=== PATIENT | male | born 1950 | race Caucasian/White ===

== ENCOUNTER 2020-08-15 19:34 | Inpatient (IN) | payer MEDICARE, MEDICAID ==
[~2020-08-15] VITALS: Ht 170.2 cm; Wt 178.0 kg
[2020-08-15 20:00] VITALS: BP 143/92
[2020-08-15] MEDS ORDERED: INSULIN GLARGINE,HUM.REC.ANLOG 100 UNITS/ML SQ SCH (21:00)
[2020-08-15] MEDS ORDERED: ACETAMINOPHEN 325 MG TABLET PO PRN ×2 (21:00→21:15)
[2020-08-15] MEDS ORDERED: DEXTROSE 50%-WATER 25 GM/50 ML SYRINGE IVP PRN (21:15)
[2020-08-15] MEDS: DOCUSATE SODIUM 250 MG CAPSULE PO SCH (22:07)
[2020-08-15] MEDS: INSULIN LISPRO 100 UNITS/ML SQ PRN (22:11)
[2020-08-16] VITALS: BP 125/83
[2020-08-16 06:10] LABS: GLUCOMETER DEV NAME(LOC) 2WR.2B; GLUCOSE,POINT OF CARE 170 MG/DL (70-110)
[2020-08-16 06:49] LABS: BASOPHILS % (AUTO) 0.7 % (0.0-2.0); EOSINOPHILS % (AUTO) 4.8 % (1.0-6.0); HEMATOCRIT 40.9 % (41-53); HEMOGLOBIN 13.8 g/dL (13.5-17.5); LYMPHOCYTES # (AUTO) 2.7 K/uL (1.0-4.8); LYMPHOCYTES % (AUTO) 36.2 % (22.0-44.0); MEAN CORPUSCULAR HEMOGLOBIN 29.1 pg (26.0-34.0); MEAN CORPUSCULAR HGB CONC 33.8 G/dL (31.0-37.0); MEAN CORPUSCULAR VOLUME 86 fL (80-100); MONOCYTES # (AUTO) 0.8 K/uL (0.1-1.0); MONOCYTES % (AUTO) 10.5 % (2.0-9.0); NEUTROPHILS # (AUTO) 3.5 K/uL (1.8-7.7); NEUTROPHILS % (AUTO) 47.8 % (40.0-70.0); PLATELET COUNT (AUTO) 289 K/uL (150-450); RED BLOOD CELL COUNT(AUTO) 4.74 MIL/uL (4.50-5.90); RED CELL DISTRIBUTION WIDTH 14.1 % (11.5-14.5)
[2020-08-16] MEDS: INSULIN LISPRO 100 UNITS/ML SQ SCH ×3 (07:00→16:30)
[2020-08-16 07:06] LABS: ALANINE AMINOTRANSFERASE 49 U/L (12-78); ALBUMIN 3.6 g/dL (3.4-5.0); ALKALINE PHOSPHATASE 122 U/L (46-116); ANION GAP 13 mmol/L (8-16); ASPARTATE AMINOTRANSFERASE 38 U/L (15-37); BILIRUBIN,TOTAL 0.5 mg/dL (0.1-1.0); CALCIUM, TOTAL 9.2 mg/dL (8.8-10.5); CARBON DIOXIDE 25 mmol/L (22-29); CHLORIDE 101 mmol/L (98-107); CREATININE 0.86 mg/dL (0.60-1.30); GLOMERULAR FILTR. RATE CALC > 60 mL/min (>60); GLUCOSE,RANDOM 187 mg/dL (70-110); POTASSIUM 3.9 mmol/L (3.5-5.1); SODIUM SERUM 139 mmol/L (136-145); TOTAL PROTEIN, SERUM 7.6 g/dL (6.4-8.2); UREA NITROGEN, BLOOD 20 mg/dL (7-18)
[2020-08-16 07:56] VITALS: BP 134/76
[2020-08-16] MEDS: LOSARTAN POTASSIUM 50 MG TABLET PO SCH (08:31)
[2020-08-16] MEDS: DOCUSATE SODIUM 250 MG CAPSULE PO SCH ×2 (08:31→20:14)
[2020-08-16] MEDS: AmLODIPine BESYLATE 10 MG TABLET PO SCH (08:31)
[2020-08-16] MEDS: ONDANSETRON HCL 4 MG TABLET PO PRN ×2 (08:33→18:49)
[2020-08-16] MEDS: INSULIN LISPRO 100 UNITS/ML SQ PRN ×3 (11:58→20:23)
[2020-08-16 12:00] LABS: GLUCOMETER DEV NAME(LOC) 2WR.2B; GLUCOSE,POINT OF CARE 208 MG/DL (70-110)
[2020-08-16] MEDS: POLYETHYLENE GLYCOL 3350 17 GM PACKET PO SCH (16:09)
[2020-08-16] MEDS: MECLIZINE HCL 25 MG TABLET PO SCH ×2 (16:09→20:14)
[2020-08-16 16:31] VITALS: BP 95/64
[2020-08-16 17:47] LABS: GLUCOMETER DEV NAME(LOC) 2WR.1C; GLUCOSE,POINT OF CARE 165 MG/DL (70-110)
[2020-08-16] MEDS: MELATONIN 3 MG TABLET PO PRN (20:14)
[2020-08-16] MEDS: INSULIN GLARGINE,HUM.REC.ANLOG 100 UNITS/ML SQ SCH (20:22)
[2020-08-16 20:59] LABS: GLUCOMETER DEV NAME(LOC) 2WR.2B; GLUCOSE,POINT OF CARE 201 MG/DL (70-110)
[2020-08-16] MEDS ORDERED: LISI-893 PO (21:44)
[2020-08-16] MEDS ORDERED: ASPI-1450 PO (21:44)
[2020-08-16] MEDS ORDERED: ATOR40TA28 PO (21:44)
[2020-08-16] MEDS ORDERED: DIME50TA23 PO (21:44)
[2020-08-16] MEDS ORDERED: METF-961 PO (21:44)
[2020-08-17] VITALS: BP 109/75
[2020-08-17] MEDS: FAMOTIDINE 20 MG TABLET PO SCH (05:53)
[2020-08-17] MEDS: INSULIN LISPRO 100 UNITS/ML SQ SCH ×3 (07:00→17:52)
[2020-08-17 08:05] VITALS: BP 127/78
[2020-08-17] MEDS: MECLIZINE HCL 25 MG TABLET PO SCH ×3 (08:36→20:17)
[2020-08-17] MEDS: AmLODIPine BESYLATE 10 MG TABLET PO SCH (08:36)
[2020-08-17] MEDS: DOCUSATE SODIUM 250 MG CAPSULE PO SCH ×2 (08:37→20:17)
[2020-08-17] MEDS: LOSARTAN POTASSIUM 50 MG TABLET PO SCH (08:37)
[2020-08-17] MEDS: POLYETHYLENE GLYCOL 3350 17 GM PACKET PO SCH (08:37)
[2020-08-17 12:16] LABS: GLUCOMETER DEV NAME(LOC) 2WR.1C; GLUCOSE,POINT OF CARE 138 MG/DL (70-110)
[2020-08-17] MEDS: INSULIN LISPRO 100 UNITS/ML SQ PRN ×3 (12:26→21:05)
[2020-08-17 12:59] LABS: GLUCOMETER DEV NAME(LOC) 2WR.1C; GLUCOSE,POINT OF CARE 245 MG/DL (70-110)
[2020-08-17] MEDS: MAGNESIUM HYDROXIDE SUSPENSION 30 ML UDCUP PO PRN (15:03)
[2020-08-17 16:10] VITALS: BP 97/59
[2020-08-17 18:07] LABS: GLUCOMETER DEV NAME(LOC) 2WR.2B; GLUCOSE,POINT OF CARE 221 MG/DL (70-110)
[2020-08-17] MEDS: MELATONIN 3 MG TABLET PO PRN (20:17)
[2020-08-17] MEDS: INSULIN GLARGINE,HUM.REC.ANLOG 100 UNITS/ML SQ SCH (21:04)
[2020-08-17 21:49] LABS: GLUCOMETER DEV NAME(LOC) 2WR.2B; GLUCOSE,POINT OF CARE 165 MG/DL (70-110)
[2020-08-18] VITALS: BP 117/72
[2020-08-18 05:45] LABS: GLUCOMETER DEV NAME(LOC) 2WR.1C; GLUCOSE,POINT OF CARE 166 MG/DL (70-110)
[2020-08-18] MEDS: FAMOTIDINE 20 MG TABLET PO SCH (05:49)
[2020-08-18 08:01] VITALS: BP 121/68
[2020-08-18] MEDS: DOCUSATE SODIUM 250 MG CAPSULE PO SCH ×2 (09:53→20:46)
[2020-08-18] MEDS: MECLIZINE HCL 25 MG TABLET PO SCH ×3 (09:53→20:46)
[2020-08-18] MEDS: AmLODIPine BESYLATE 10 MG TABLET PO SCH (09:53)
[2020-08-18] MEDS: INSULIN LISPRO 100 UNITS/ML SQ SCH (09:53)
[2020-08-18] MEDS: POLYETHYLENE GLYCOL 3350 17 GM PACKET PO SCH (09:53)
[2020-08-18] MEDS: LOSARTAN POTASSIUM 50 MG TABLET PO SCH (09:53)
[2020-08-18] MEDS: INSULIN LISPRO 100 UNITS/ML SQ PRN ×4 (09:54→21:13)
[2020-08-18] MEDS ORDERED: ASPI-1522 PO (11:24)
[2020-08-18 12:49] LABS: GLUCOMETER DEV NAME(LOC) 2WR.1C; GLUCOSE,POINT OF CARE 171 MG/DL (70-110)
[2020-08-18] MEDS: MAGNESIUM HYDROXIDE SUSPENSION 30 ML UDCUP PO PRN (16:10)
[2020-08-18 16:51] VITALS: BP 104/43
[2020-08-18] MEDS: MetFORMIN HCL 500 MG TABLET PO SCH (17:13)
[2020-08-18] MEDS: INSULIN GLARGINE,HUM.REC.ANLOG 100 UNITS/ML SQ SCH (21:13)
[2020-08-18 21:30] LABS: GLUCOMETER DEV NAME(LOC) 2WR.2B; GLUCOSE,POINT OF CARE 248 MG/DL (70-110)
[2020-08-18] MEDS: ONDANSETRON HCL 4 MG TABLET PO PRN (23:40)
[2020-08-19] VITALS: BP 130/80
[2020-08-19] MEDS: FAMOTIDINE 20 MG TABLET PO SCH (05:21)
[2020-08-19 06:00] LABS: GLUCOMETER DEV NAME(LOC) 2WR.1C; GLUCOSE,POINT OF CARE 198 MG/DL (70-110)
[2020-08-19 06:01] LABS: GLUCOMETER DEV NAME(LOC) 2WR.1C; GLUCOSE,POINT OF CARE 163 MG/DL (70-110)
[2020-08-19] MEDS: MetFORMIN HCL 500 MG TABLET PO SCH ×2 (07:48→17:19)
[2020-08-19] MEDS: INSULIN LISPRO 100 UNITS/ML SQ PRN ×4 (07:49→21:18)
[2020-08-19] MEDS: LOSARTAN POTASSIUM 50 MG TABLET PO SCH (08:31)
[2020-08-19] MEDS: AmLODIPine BESYLATE 10 MG TABLET PO SCH (08:31)
[2020-08-19] MEDS: POLYETHYLENE GLYCOL 3350 17 GM PACKET PO SCH (08:31)
[2020-08-19] MEDS: DOCUSATE SODIUM 250 MG CAPSULE PO SCH ×2 (08:31→21:09)
[2020-08-19] MEDS: MECLIZINE HCL 25 MG TABLET PO SCH ×3 (08:31→21:09)
[2020-08-19 10:29] VITALS: BP 133/74
[2020-08-19 11:34] LABS: GLUCOMETER DEV NAME(LOC) 2WR.2B; GLUCOSE,POINT OF CARE 186 MG/DL (70-110)
[2020-08-19] MEDS: ONDANSETRON HCL 4 MG TABLET PO PRN ×2 (12:39→21:09)
[2020-08-19 16:46] VITALS: BP 131/75
[2020-08-19 19:26] LABS: GLUCOMETER DEV NAME(LOC) 2WR.2B; GLUCOSE,POINT OF CARE 195 MG/DL (70-110)
[2020-08-19] MEDS: INSULIN GLARGINE,HUM.REC.ANLOG 100 UNITS/ML SQ SCH (21:17)
[2020-08-20 05:28] LABS: GLUCOMETER DEV NAME(LOC) 2WR.1C; GLUCOSE,POINT OF CARE 174 MG/DL (70-110)
[2020-08-20 05:50] VITALS: BP 116/71
[2020-08-20] MEDS: FAMOTIDINE 20 MG TABLET PO SCH (05:59)
[2020-08-20 06:15] LABS: GLUCOMETER DEV NAME(LOC) 2WR.1C; GLUCOSE,POINT OF CARE 129 MG/DL (70-110)
[2020-08-20 07:30] VITALS: BP 142/78
[2020-08-20] MEDS: MetFORMIN HCL 500 MG TABLET PO SCH ×2 (08:22→17:49)
[2020-08-20] MEDS: MECLIZINE HCL 25 MG TABLET PO SCH ×3 (08:22→20:37)
[2020-08-20] MEDS: ONDANSETRON HCL 4 MG TABLET PO PRN ×2 (08:22→21:13)
[2020-08-20] MEDS: AmLODIPine BESYLATE 10 MG TABLET PO SCH (08:22)
[2020-08-20] MEDS: LOSARTAN POTASSIUM 50 MG TABLET PO SCH (08:22)
[2020-08-20] MEDS: POLYETHYLENE GLYCOL 3350 17 GM PACKET PO SCH (08:22)
[2020-08-20] MEDS: DOCUSATE SODIUM 250 MG CAPSULE PO SCH ×2 (08:22→20:37)
[2020-08-20] MEDS: INSULIN LISPRO 100 UNITS/ML SQ PRN ×3 (12:35→20:46)
[2020-08-20 15:04] LABS: GLUCOMETER DEV NAME(LOC) 2WR.1C; GLUCOSE,POINT OF CARE 227 MG/DL (70-110)
[2020-08-20 18:08] VITALS: BP 110/77
[2020-08-20 18:55] LABS: GLUCOMETER DEV NAME(LOC) 2WR.1C; GLUCOSE,POINT OF CARE 207 MG/DL (70-110)
[2020-08-20] MEDS: INSULIN GLARGINE,HUM.REC.ANLOG 100 UNITS/ML SQ SCH (20:44)
[2020-08-20 21:09] VITALS: BP 116/66
[2020-08-20 21:56] LABS: GLUCOMETER DEV NAME(LOC) 2WR.2B; GLUCOSE,POINT OF CARE 224 MG/DL (70-110)
[2020-08-21] VITALS: BP 130/80
[2020-08-21] MEDS: FAMOTIDINE 20 MG TABLET PO SCH (05:58)
[2020-08-21 06:19] LABS: GLUCOMETER DEV NAME(LOC) 2WR.2B; GLUCOSE,POINT OF CARE 130 MG/DL (70-110)
[2020-08-21] MEDS: MetFORMIN HCL 500 MG TABLET PO SCH ×3 (07:30→17:11)
[2020-08-21 08:00] VITALS: BP 131/78
[2020-08-21] MEDS: ONDANSETRON HCL 4 MG TABLET PO PRN ×2 (08:45→15:16)
[2020-08-21] MEDS: DOCUSATE SODIUM 250 MG CAPSULE PO SCH ×3 (08:46→20:49)
[2020-08-21] MEDS: POLYETHYLENE GLYCOL 3350 17 GM PACKET PO SCH ×2 (08:46→09:00)
[2020-08-21] MEDS: LOSARTAN POTASSIUM 50 MG TABLET PO SCH (08:46)
[2020-08-21] MEDS: MECLIZINE HCL 25 MG TABLET PO SCH ×3 (08:48→20:49)
[2020-08-21] MEDS: AmLODIPine BESYLATE 10 MG TABLET PO SCH (08:48)
[2020-08-21] MEDS ORDERED: SODIUM CHLORIDE 0.9% 1,000 ML IV ONE (10:45)
[2020-08-21 12:49] LABS: GLUCOMETER DEV NAME(LOC) 2WR.2B; GLUCOSE,POINT OF CARE 165 MG/DL (70-110)
[2020-08-21 14:09] LABS: BASOPHILS % (AUTO) 0.3 % (0.0-2.0); EOSINOPHILS % (AUTO) 2.6 % (1.0-6.0); HEMATOCRIT 38.7 % (41-53); HEMOGLOBIN 12.7 g/dL (13.5-17.5); LYMPHOCYTES # (AUTO) 1.7 K/uL (1.0-4.8); LYMPHOCYTES % (AUTO) 29.2 % (22.0-44.0); MEAN CORPUSCULAR HEMOGLOBIN 28.6 pg (26.0-34.0); MEAN CORPUSCULAR HGB CONC 32.8 G/dL (31.0-37.0); MEAN CORPUSCULAR VOLUME 87 fL (80-100); MONOCYTES # (AUTO) 0.5 K/uL (0.1-1.0); MONOCYTES % (AUTO) 7.9 % (2.0-9.0); NEUTROPHILS # (AUTO) 3.4 K/uL (1.8-7.7); PLATELET COUNT (AUTO) 241 K/uL (150-450); RED BLOOD CELL COUNT(AUTO) 4.45 MIL/uL (4.50-5.90); RED CELL DISTRIBUTION WIDTH 14.2 % (11.5-14.5)
[2020-08-21 14:17] LABS: ALANINE AMINOTRANSFERASE 37 U/L (12-78); ALBUMIN 3.1 g/dL (3.4-5.0); ALKALINE PHOSPHATASE 97 U/L (46-116); ANION GAP 8 mmol/L (8-16); ASPARTATE AMINOTRANSFERASE 22 U/L (15-37); BILIRUBIN,TOTAL 0.5 mg/dL (0.1-1.0); CALCIUM, TOTAL 7.8 mg/dL (8.8-10.5); CARBON DIOXIDE 24 mmol/L (22-29); CHLORIDE 104 mmol/L (98-107); CREATININE 0.79 mg/dL (0.60-1.30); GLOMERULAR FILTR. RATE CALC > 60 mL/min (>60); GLUCOSE,RANDOM 153 mg/dL (70-110); POTASSIUM 3.9 mmol/L (3.5-5.1); SODIUM SERUM 136 mmol/L (136-145); TOTAL PROTEIN, SERUM 6.5 g/dL (6.4-8.2); UREA NITROGEN, BLOOD 21 mg/dL (7-18)
[2020-08-21 16:27] VITALS: BP 133/69
[2020-08-21] MEDS: INSULIN LISPRO 100 UNITS/ML SQ PRN ×2 (17:44→21:44)
[2020-08-21 18:10] LABS: GLUCOMETER DEV NAME(LOC) 2WR.1C; GLUCOSE,POINT OF CARE 173 MG/DL (70-110)
[2020-08-21] MEDS: INSULIN GLARGINE,HUM.REC.ANLOG 100 UNITS/ML SQ SCH (21:45)
[2020-08-22] VITALS: BP 118/79
[2020-08-22 00:22] LABS: GLUCOMETER DEV NAME(LOC) 2WR.1C; GLUCOSE,POINT OF CARE 206 MG/DL (70-110)
[2020-08-22] MEDS: FAMOTIDINE 20 MG TABLET PO SCH (05:42)
[2020-08-22 05:49] LABS: GLUCOMETER DEV NAME(LOC) 2WR.1C; GLUCOSE,POINT OF CARE 95 MG/DL (70-110)
[2020-08-22] MEDS: MECLIZINE HCL 25 MG TABLET PO SCH ×3 (07:48→20:49)
[2020-08-22] MEDS: POLYETHYLENE GLYCOL 3350 17 GM PACKET PO SCH ×2 (07:48→07:53)
[2020-08-22] MEDS: DOCUSATE SODIUM 250 MG CAPSULE PO SCH ×2 (07:48→20:49)
[2020-08-22] MEDS: AmLODIPine BESYLATE 10 MG TABLET PO SCH (07:48)
[2020-08-22] MEDS: MetFORMIN HCL 500 MG TABLET PO SCH ×2 (07:48→17:27)
[2020-08-22] MEDS: LOSARTAN POTASSIUM 50 MG TABLET PO SCH (07:48)
[2020-08-22 08:18] VITALS: BP 133/76
[2020-08-22] MEDS: ONDANSETRON HCL 4 MG TABLET PO PRN ×2 (11:08→17:27)
[2020-08-22 14:46] LABS: GLUCOMETER DEV NAME(LOC) 2WR.1C; GLUCOSE,POINT OF CARE 181 MG/DL (70-110)
[2020-08-22] MEDS: DICLOFENAC SODIUM 1% 100 GM GEL [4GM] TP SCH ×2 (15:41→20:52)
[2020-08-22 18:36] LABS: GLUCOMETER DEV NAME(LOC) 2WR.2B; GLUCOSE,POINT OF CARE 129 MG/DL (70-110)
[2020-08-22 19:04] VITALS: BP 148/80
[2020-08-22] MEDS: INSULIN LISPRO 100 UNITS/ML SQ PRN (21:00)
[2020-08-22] MEDS: INSULIN GLARGINE,HUM.REC.ANLOG 100 UNITS/ML SQ SCH (21:01)
[2020-08-22 22:08] LABS: GLUCOMETER DEV NAME(LOC) 2WR.1C; GLUCOSE,POINT OF CARE 176 MG/DL (70-110)
[2020-08-22] MEDS: 0.9% SODIUM CHLORIDE 10 ML SYRINGE IVP SCH (23:32)
[2020-08-23] VITALS: BP 125/67
[2020-08-23] MEDS: FAMOTIDINE 20 MG TABLET PO SCH (05:49)
[2020-08-23 05:56] LABS: GLUCOMETER DEV NAME(LOC) 2WR.1C; GLUCOSE,POINT OF CARE 102 MG/DL (70-110)
[2020-08-23 08:00] VITALS: BP 123/61
[2020-08-23] MEDS: MECLIZINE HCL 25 MG TABLET PO SCH ×3 (08:06→20:46)
[2020-08-23] MEDS: AmLODIPine BESYLATE 10 MG TABLET PO SCH (08:07)
[2020-08-23] MEDS: LOSARTAN POTASSIUM 50 MG TABLET PO SCH (08:07)
[2020-08-23] MEDS: MetFORMIN HCL 500 MG TABLET PO SCH ×2 (08:07→17:00)
[2020-08-23] MEDS: POLYETHYLENE GLYCOL 3350 17 GM PACKET PO SCH (08:08)
[2020-08-23] MEDS: DICLOFENAC SODIUM 1% 100 GM GEL [4GM] TP SCH ×3 (08:08→20:46)
[2020-08-23] MEDS: 0.9% SODIUM CHLORIDE 10 ML SYRINGE IVP SCH ×3 (08:09→23:36)
[2020-08-23] MEDS: DOCUSATE SODIUM 250 MG CAPSULE PO SCH ×2 (08:09→20:46)
[2020-08-23] MEDS: ONDANSETRON HCL 4 MG TABLET PO PRN (10:43)
[2020-08-23 16:19] VITALS: BP 120/76
[2020-08-23] MEDS: INSULIN GLARGINE,HUM.REC.ANLOG 100 UNITS/ML SQ SCH (20:51)
[2020-08-23 21:08] LABS: GLUCOMETER DEV NAME(LOC) 2WR.2B; GLUCOSE,POINT OF CARE 111 MG/DL (70-110)
[2020-08-23 21:52] LABS: GLUCOMETER DEV NAME(LOC) 2WR.1C; GLUCOSE,POINT OF CARE 170 MG/DL (70-110)
[2020-08-23 21:52] LABS: GLUCOMETER DEV NAME(LOC) 2WR.1C; GLUCOSE,POINT OF CARE 136 MG/DL (70-110)
[2020-08-24 05:00] VITALS: BP 121/63
[2020-08-24] MEDS: FAMOTIDINE 20 MG TABLET PO SCH (05:44)
[2020-08-24] MEDS: ONDANSETRON HCL 4 MG TABLET PO PRN ×2 (05:48→16:34)
[2020-08-24 06:37] LABS: GLUCOMETER DEV NAME(LOC) 2WR.1C; GLUCOSE,POINT OF CARE 84 MG/DL (70-110)
[2020-08-24 07:45] VITALS: BP 129/76
[2020-08-24] MEDS: DOCUSATE SODIUM 250 MG CAPSULE PO SCH ×2 (07:49→20:44)
[2020-08-24] MEDS: MECLIZINE HCL 25 MG TABLET PO SCH ×3 (07:49→20:45)
[2020-08-24] MEDS: DICLOFENAC SODIUM 1% 100 GM GEL [4GM] TP SCH ×3 (07:49→20:45)
[2020-08-24] MEDS: MetFORMIN HCL 500 MG TABLET PO SCH ×2 (07:49→17:00)
[2020-08-24] MEDS: AmLODIPine BESYLATE 10 MG TABLET PO SCH (07:49)
[2020-08-24] MEDS: POLYETHYLENE GLYCOL 3350 17 GM PACKET PO SCH (07:50)
[2020-08-24] MEDS: 0.9% SODIUM CHLORIDE 10 ML SYRINGE IVP SCH ×2 (07:51→16:33)
[2020-08-24] MEDS: LOSARTAN POTASSIUM 50 MG TABLET PO SCH (07:52)
[2020-08-24 13:13] LABS: GLUCOMETER DEV NAME(LOC) 2WR.2B; GLUCOSE,POINT OF CARE 131 MG/DL (70-110)
[2020-08-24 17:36] VITALS: BP 136/80
[2020-08-24 18:36] LABS: GLUCOMETER DEV NAME(LOC) 2WR.2B; GLUCOSE,POINT OF CARE 169 MG/DL (70-110)
[2020-08-24] MEDS: DEXTROSE 5%-0.45% SODIUM CHL 1,000 ML IV SCH (20:45)
[2020-08-24] MEDS: INSULIN GLARGINE,HUM.REC.ANLOG 100 UNITS/ML SQ SCH ×2 (21:00→21:41)
[2020-08-24 21:56] LABS: GLUCOMETER DEV NAME(LOC) 2WR.1C; GLUCOSE,POINT OF CARE 218 MG/DL (70-110)
[2020-08-25] MEDS: 0.9% SODIUM CHLORIDE 10 ML SYRINGE IVP SCH ×3 (00:04→15:30)
[2020-08-25] MEDS: FAMOTIDINE 20 MG TABLET PO SCH (05:35)
[2020-08-25 05:38] VITALS: BP 116/61
[2020-08-25 05:53] LABS: GLUCOMETER DEV NAME(LOC) 2WR.2B; GLUCOSE,POINT OF CARE 150 MG/DL (70-110)
[2020-08-25] MEDS: AmLODIPine BESYLATE 10 MG TABLET PO SCH (07:51)
[2020-08-25] MEDS: DICLOFENAC SODIUM 1% 100 GM GEL [4GM] TP SCH ×3 (07:51→20:46)
[2020-08-25] MEDS: LOSARTAN POTASSIUM 50 MG TABLET PO SCH (07:51)
[2020-08-25] MEDS: MECLIZINE HCL 25 MG TABLET PO SCH ×3 (07:51→20:43)
[2020-08-25] MEDS: MetFORMIN HCL 500 MG TABLET PO SCH ×2 (07:51→17:12)
[2020-08-25] MEDS: DOCUSATE SODIUM 250 MG CAPSULE PO SCH ×2 (07:51→20:43)
[2020-08-25] MEDS: POLYETHYLENE GLYCOL 3350 17 GM PACKET PO SCH (07:53)
[2020-08-25] MEDS: INSULIN LISPRO 100 UNITS/ML SQ PRN ×4 (07:56→20:45)
[2020-08-25] MEDS: DEXTROSE 5%-0.45% SODIUM CHL 1,000 ML IV SCH ×2 (08:03→16:29)
[2020-08-25] MEDS: ONDANSETRON HCL 4 MG TABLET PO PRN ×2 (08:24→15:30)
[2020-08-25 08:30] VITALS: BP 108/65
[2020-08-25 15:11] LABS: GLUCOMETER DEV NAME(LOC) 2WR.1C; GLUCOSE,POINT OF CARE 147 MG/DL (70-110)
[2020-08-25 16:31] VITALS: BP 133/76
[2020-08-25 18:18] LABS: GLUCOMETER DEV NAME(LOC) 2WR.2B; GLUCOSE,POINT OF CARE 181 MG/DL (70-110)
[2020-08-25] MEDS: INSULIN GLARGINE,HUM.REC.ANLOG 100 UNITS/ML SQ SCH (20:44)
[2020-08-25 20:51] LABS: GLUCOMETER DEV NAME(LOC) 2WR.1C; GLUCOSE,POINT OF CARE 168 MG/DL (70-110)
[2020-08-26] VITALS: BP 136/81
[2020-08-26] MEDS: FAMOTIDINE 20 MG TABLET PO SCH (05:50)
[2020-08-26 06:08] LABS: GLUCOMETER DEV NAME(LOC) 2WR.1C; GLUCOSE,POINT OF CARE 119 MG/DL (70-110)
[2020-08-26 06:12] LABS: BASOPHILS % (AUTO) 0.5 % (0.0-2.0); EOSINOPHILS % (AUTO) 6.3 % (1.0-6.0); HEMATOCRIT 38.5 % (41-53); HEMOGLOBIN 13.1 g/dL (13.5-17.5); LYMPHOCYTES # (AUTO) 1.9 K/uL (1.0-4.8); LYMPHOCYTES % (AUTO) 29.1 % (22.0-44.0); MEAN CORPUSCULAR HEMOGLOBIN 29.2 pg (26.0-34.0); MEAN CORPUSCULAR VOLUME 86 fL (80-100); MONOCYTES # (AUTO) 0.6 K/uL (0.1-1.0); MONOCYTES % (AUTO) 9.5 % (2.0-9.0); NEUTROPHILS # (AUTO) 3.5 K/uL (1.8-7.7); NEUTROPHILS % (AUTO) 54.6 % (40.0-70.0); PLATELET COUNT (AUTO) 241 K/uL (150-450); RED BLOOD CELL COUNT(AUTO) 4.49 MIL/uL (4.50-5.90); RED CELL DISTRIBUTION WIDTH 14.3 % (11.5-14.5)
[2020-08-26 06:22] LABS: ANION GAP 8 mmol/L (8-16); CALCIUM, TOTAL 8.9 mg/dL (8.8-10.5); CARBON DIOXIDE 27 mmol/L (22-29); CHLORIDE 103 mmol/L (98-107); CREATININE 0.94 mg/dL (0.60-1.30); GLOMERULAR FILTR. RATE CALC > 60 mL/min (>60); GLUCOSE,RANDOM 134 mg/dL (70-110); POTASSIUM 3.5 mmol/L (3.5-5.1); SODIUM SERUM 138 mmol/L (136-145); UREA NITROGEN, BLOOD 16 mg/dL (7-18)
[2020-08-26] MEDS ORDERED: DOCU-350 PO (06:30)
[2020-08-26] MEDS ORDERED: ONDA-104 PO (06:30)
[2020-08-26] MEDS ORDERED: AMLO-258 PO (06:30)
[2020-08-26] MEDS ORDERED: INSU100V SQ (06:30)
[2020-08-26] MEDS ORDERED: LOSA50TA37 PO (06:30)
[2020-08-26] MEDS ORDERED: INSLAN SQ (06:30)
[2020-08-26] MEDS ORDERED: MECL-160 PO (06:30)
[2020-08-26] MEDS ORDERED: POLY17PO47 PO (06:30)
[2020-08-26] MEDS ORDERED: METF-960 PO (06:30)
[2020-08-26] MEDS ORDERED: FAMO20 PO (06:30)
[2020-08-26] MEDS ORDERED: DICL2100G TP (06:30)
[2020-08-26] MEDS: ONDANSETRON HCL 4 MG TABLET PO PRN (08:13)
[2020-08-26] MEDS: MetFORMIN HCL 500 MG TABLET PO SCH (08:14)
[2020-08-26] MEDS: POLYETHYLENE GLYCOL 3350 17 GM PACKET PO SCH (08:14)
[2020-08-26] MEDS: DOCUSATE SODIUM 250 MG CAPSULE PO SCH (08:14)
[2020-08-26] MEDS: LOSARTAN POTASSIUM 50 MG TABLET PO SCH (08:14)
[2020-08-26] MEDS: MECLIZINE HCL 25 MG TABLET PO SCH (08:14)
[2020-08-26] MEDS: AmLODIPine BESYLATE 10 MG TABLET PO SCH (08:14)
[2020-08-26] MEDS: DICLOFENAC SODIUM 1% 100 GM GEL [4GM] TP SCH (08:15)
[2020-08-26] MEDS: 0.9% SODIUM CHLORIDE 10 ML SYRINGE IVP SCH ×2 (08:23)
[2020-08-26 09:00] VITALS: BP 130/72
[2020-08-26] MEDS: INSULIN LISPRO 100 UNITS/ML SQ PRN (12:07)
[2020-08-26 12:15] LABS: GLUCOMETER DEV NAME(LOC) 2WR.2B; GLUCOSE,POINT OF CARE 178 MG/DL (70-110)
== END 2020-08-26 13:15 | disposition home or self-care (01) | DRG 66 ==
LOC: 2WR 20:15
PROVIDERS: ADMIT Physical Medicine & Rehabilitation; ATTEND Physical Medicine & Rehabilitation
DX: I61.9 Nontraumatic intracerebral hemorrhage, unspecified (principal); R26.0 Ataxic gait; H53.8 Other visual disturbances; R47.1 Dysarthria and anarthria; R42 Dizziness and giddiness; E11.65 Type 2 diabetes mellitus with hyperglycemia; I10 Essential (primary) hypertension
CPT/HCPCS: 70450; 87081; 92507; 92523; 93970; 97110; 97112; 97116; 97162; 97166; 97530; 97535; 99366; J1815; J7030; Q0162